=== PATIENT | male | born 1960 | race Caucasian/White ===

== ENCOUNTER 2016-08-07 13:15 | Emergency (ER) | payer OTHER ==
[2016-08-07] MEDS ORDERED: DIPH/PERTUSS(ACELL)/TETANUS VAC/PF 0.5 ML SYR (>=10YO) IM ONE (13:40)
[2016-08-07] MEDS ORDERED: OXYCODONE-ACETAMINOPHEN 5-325 MG TABLET PO ONE (13:43)
[2016-08-07] MEDS ORDERED: ONDANSETRON 4 MG TAB.RAPDIS PO ONE (13:43)
--- NOTE | 2016-08-07 13:43 | ER Document Report ---
ED Medical Screen (RME) - General Chief Complaint: Laceration Stated Complaint: FINGER INJURY Mode of Arrival: Ambulatory Information source: Patient TRAVEL OUTSIDE OF THE [place] IN LAST 30 DAYS: No - HPI Onset: Just prior to arrival Onset/Duration: Sudden Context: And got too close to tablesaw. Quality of pain: Dull Associated Symptoms: None - Related Data Allergies/Adverse Reactions: No Known Allergies Allergy (Unverified 08/07/16 13:37) Past Medical History - General Information source: Patient - Medical History Medical History: Negative Renal/ Medical History: Denies: Hx Peritoneal Dialysis Review of Systems - Review of Systems Constitutional: No symptoms reported EENT: No symptoms reported Cardiovascular: No symptoms reported Musculoskeletal: See HPI Skin: See HPI Neurological/Psychological: See HPI. denies: Lost consciousness Physical Exam - Vital signs Vitals: Temp Pulse Resp BP Pulse Ox 97.6 F 65 18 187/86 H 100 08/07/16 13:19 08/07/16 13:19 08/07/16 13:19 08/07/16 13:19 08/07/16 13:19 Interpretation: Hypertensive - General General appearance: Appears well, Alert In distress: None - Extremities General upper extremity: No: Normal inspection - R. HAND (SEE BELOW) Hand: Laceration - IRREG. LAC. 2.5 cm LENGTH TO DISTAL PAD R. THUMB. ABRASION / LACERATION RADIAL SIDE OF INDEX FINGER PIP JOINT. Course - Vital Signs Vital signs: Temp Pulse Resp BP Pulse Ox 97.6 F 65 18 187/86 H 100 08/07/16 13:19 08/07/16 13:19 08/07/16 13:19 08/07/16 13:19 08/07/16 13:19
--- NOTE | 2016-08-07 14:35 | ER Document Report ---
ED Wound - General Time seen by provider: 14:15 Mode of Arrival: Ambulatory Information source: Patient TRAVEL OUTSIDE OF THE [place] IN LAST 30 DAYS: No - HPI Patient complains to provider of: Laceration Occurred: Just prior to arrival - see HPI note Onset/Duration: Sudden Quality of pain: Throbbing Context: Injury, Work related Associated Symptoms: Avulsion <EDSON SANTOS - Last Filed: 08/07/16 15:39> <KARIE PETERS - Last Filed: 08/07/16 21:07> - General Chief Complaint: Laceration Stated Complaint: FINGER INJURY Notes: Patient is a 55 year old male presenting to the emergency department for a laceration to his right thumb. Patient states he was using a saw and he accidentally grabbed the saw with his right thumb just prior to arrive to the emergency department. Patient's last tetanus vaccination is unknown. Patient has no known allergies. (EDSON SANTOS) - Related Data Allergies/Adverse Reactions: No Known Allergies Allergy (Unverified 08/07/16 13:37) Past Medical History - General Information source: Patient - Social History Smoking Status: Never Smoker Cigarette use (# per day): No Chew tobacco use (# tins/day): No Frequency of alcohol use: None Drug Abuse: Marijuana Family History: None Patient has suicidal ideation: No Patient has homicidal ideation: No - Medical History Medical History: Negative Surgical Hx: Negative - Immunizations Hx Diphtheria, Pertussis, Tetanus Vaccination: Yes - 08/07/16 <EDSON SANTOS - Last Filed: 08/07/16 15:39> Review of Systems - Review of Systems Constitutional: No symptoms reported EENT: No symptoms reported Cardiovascular: No symptoms reported Respiratory: No symptoms reported Gastrointestinal: No symptoms reported Genitourinary: No symptoms reported Male Genitourinary: No symptoms reported Musculoskeletal: No symptoms reported Skin: See HPI Hematologic/Lymphatic: No symptoms reported Neurological/Psychological: No symptoms reported -: Yes All other systems reviewed and negative <EDSON SANTOS - Last Filed: 08/07/16 15:39> Physical Exam <EDSON SANTOS - Last Filed: 08/07/16 15:39> <KARIE PETERS - Last Filed: 08/07/16 21:07> - Vital signs Vitals: Temp Pulse Resp BP Pulse Ox 97.6 F 65 18 187/86 H 100 08/07/16 13:19 08/07/16 13:19 08/07/16 13:19 08/07/16 13:19 08/07/16 13:19 - Notes Notes: GENERAL: Alert, interacts well. No acute distress. HEAD: Normocephalic, atraumatic. EYES: Pupils equal, round, and reactive to light. Extraocular movements intact. ENT: Oral mucosa moist, tongue midline. NECK: Full range of motion. Supple. Trachea midline. LUNGS: No respiratory distress. HEART: Regular rate. ABDOMEN: Non-distended. EXTREMITIES: 4 cm jagged gap laceration to the pad of the right thumb, decreased sensation to the pad of the thumb, sensation to the nail, tip of finger and other surrounding areas is intact. 1 cm by 1.54 cm avulsion distally to the ulnar aspect of the right thumb. Able to see the flexor tendon which is penetrated through, able to palpate the bone. Unable to flex the IP joint of the right thumb. Superficial abrasion over the PIP joint of the right index finger; normal ROM and sensation intact to the right index finger. Moves all 4 extremities spontaneously. No edema, radial pulses 2/4 bilaterally. No cyanosis. NEUROLOGICAL: Alert and oriented x3. Normal speech. PSYCH: Normal affect, normal mood. SKIN: Warm, dry, normal turgor. See above for details on laceration. (EDSON SANTOS) Course - Consults Dr. Kate Time consulted: 14:50 Consulted provider: follow-up in office <EDSON SANTOS - Last Filed: 08/07/16 15:39> <KARIE PETERS - Last Filed: 08/07/16 21:07> - Vital Signs Vital signs: Temp Pulse Resp BP Pulse Ox 97.6 F 70 20 160/77 H 97 08/07/16 16:30 08/07/16 16:30 08/07/16 16:30 08/07/16 16:30 08/07/16 16:30 - Consults Dr. Kate Reason for consultation: 08/07/16 14:[address] Kate about patient's laceration. He agrees with irrigating the wound, starting the patient on antibiotics, loosely approximating the wound , and the patient will follow-up in his office tomorrow morning. (EDSON SANTOS ) Procedures - Immobilization Right Thumb Pre-Proc Neuro Vasc Exam: Abnormal - Decreased sensation to the distal aspect of the pad of the thumb. Immobilizer type: Finger splint (Static) Performed by: PCT Post-Proc Neuro Vasc Exam: Abnormal, Unchanged from pre-exam Alignment checked and good: Yes - Laceration/Wound Repair Right Thumb proximal Wound length (cm): 4 Wound's Depth, Shape: Into muscle, Irregular, Contused tissue, Other - flexor tendon laceration Laceration pre-procedure: Sterile PPE donned, Sterile drapes applied, Shur- Clens applied Anesthetic type: 1% Lidocaine Volume Anesthetic (mLs): 5 Wound explored: No foreign body removed, Contaminated Wound Debrided: Minimal - irrigated with tap water and soap for 5 minutes Wound Repaired With: Sutures Suture Size/Type: 4:0, Ethilon Number of Sutures: 7 Layer Closure?: No Post-procedure wound care: Sterile dressing applied, Splint applied Post-procedure NV exam normal: No - decreased sensation same as prior Complications: No right thumb distal Wound length (cm): 1.5 Wound's Depth, Shape: Into muscle, Irregular, Contused tissue Laceration pre-procedure: Sterile PPE donned, Sterile drapes applied, Shur- Clens applied Anesthetic type: 1% Lidocaine Volume Anesthetic (mLs): 4 - nerve block Wound explored: No foreign body removed, Contaminated Wound Repaired With: Sutures Suture Size/Type: 4:0, Ethilon Number of Sutures: 3 Layer Closure?: No Post-procedure wound care: Sterile dressing applied, Splint applied Post-procedure NV exam normal: No - decreased sensation same as prior Complications: No <KARIE PETERS - Last Filed: 08/07/16 21:07> Discharge <EDSON SANTOS - Last Filed: 08/07/16 15:39> <KARIE PETERS - Last Filed: 08/07/16 21:07> - Discharge Clinical Impression: Laceration of right thumb with tendon involvement Qualifiers: Encounter type: initial encounter Qualified Code(s): S61.011A - Laceration without foreign body of right thumb without damage to nail, initial encounter Hypertension Qualifiers: Hypertension type: essential hypertension Qualified Code(s): I10 - Essential ( primary) hypertension Condition: Stable Disposition: HOME, SELF-CARE Additional Instructions: Please follow up with Dr. Kate and Dr. Mattson tomorrow morning. He will need to have the tendon in your thumb repaired. Please keep the splint on. Do not eat anything after midnight. Please keep the area clean and dry. Please take the Augmentin as directed until it is gone. Please use ibuprofen ( Motrin or Advil) 600-800 mg every 8 hours as needed for pain or fever. You may also use acetaminophen (Tylenol) 1000 mg every 4-6 hours as needed for pain. If these do not work you may take the [place]. Prescriptions: Hydrocodone/Acetaminophen [[place] 5-325 mg Tablet] 1 tab PO Q4HP PRN #10 tablet PRN Reason: Amox Tr/Potassium Clavulanate [Augmentin 875-125 Tablet] 1 tab PO BID 10 Days Forms: Elevated Blood Pressure Referrals: ALESSANDRA KATE MD [ACTIVE STAFF] - Follow up tomorrow Scribe Attestation: 08/07/16 21:06 I personally performed the services described in the documentation, reviewed and edited the documentation which was dictated to the scribe in my presence, and it accurately records my words and actions. (KARIE PETERS) Scribe Documentation - Scribe Written by Scrriddhi:: Edson Santos 08/07/16 14:55 acting as scribe for :: Stiven <EDSON SANTOS - Last Filed: 08/07/16 15:39>
[2016-08-07] MEDS ORDERED: LIDOCAINE 1% INJ-PF (10 MG/ML) 30 ML SDV INJ ONE (15:02)
[2016-08-07] MEDS ORDERED: AMOXICILLIN TR/POT CLAVULANATE 500-125 MG TAB PO ONE (15:04)
[2016-08-07 16:31] VITALS: BP 160/77
== END 2016-08-07 16:36 | disposition home or self-care (01) ==
LOC: ER 13:15
PROC: 0HQFXZZ Repair Right Hand Skin, External Approach (ICD-10-PCS; principal; 2016-08-07)
DX: S61.011A Laceration without foreign body of right thumb without damage to nail, initial encounter (principal); I10 Essential (primary) hypertension; W45.8XXA Other foreign body or object entering through skin, initial encounter
CPT/HCPCS: 99283; 90471; 73140; 90715; 12042; S0119; J3490

== ENCOUNTER 2016-08-12 08:37 | Day surgery (SDC) | payer OTHER ==
[2016-08-12] MEDS ORDERED: CEFAZOLIN 2 GM/D5W RTU 2 GM/50 ML RTUPB IV ONE (09:10)
[2016-08-12] MEDS ORDERED: BUPIVACAINE HCL 0.5 % INJ/PF 30 ML SDV ONE (09:33)
[2016-08-12 09:37] LABS: APPEARANCE,URINE CLEAR; BILIRUBIN,URINE NEGATIVE (NEGATIVE); GLUCOSE, URINE NEGATIVE (NEGATIVE); KETONES,URINE NEGATIVE (NEGATIVE); LEUKOCYTE ESTERASE,URINE NEGATIVE (NEGATIVE); NITRITE,URINE NEGATIVE (NEGATIVE); PROTEIN,URINE NEGATIVE (NEGATIVE); URINE SPECIFIC GRAVITY 1.019; UROBILINOGEN,URINE NEGATIVE mg/dL (<2.0)
[2016-08-12 10:06] LABS: HEMATOCRIT 40.7 % (37.9-51.0); HEMOGLOBIN 13.2 g/dL (13.5-17.0); HGB HCT DIFFERENCE -1.1; MEAN CORPUSCULAR HEMOGLOBIN 27.8 pg (27.0-33.4); MEAN CORPUSCULAR HGB CONC 32.5 g/dL (32.0-36.0); MEAN CORPUSCULAR VOLUME 86 fl (80-97); RED BLOOD COUNT 4.76 10^6/uL (4.35-5.55); WHITE BLOOD COUNT 5.8 10^3/uL (4.0-10.5)
[2016-08-12 10:23] LABS: ANION GAP 9 (5-19); BLOOD UREA NITROGEN 23 mg/dL (7-20); CALCIUM 9.7 mg/dL (8.4-10.2); CARBON DIOXIDE 26 mmol/L (22-30); CHLORIDE 108 mmol/L (98-107); CREATININE RESULT 0.78 mg/dL (0.52-1.25); GLUCOSE 109 mg/dL (75-110); POTASSIUM 4.9 mmol/L (3.6-5.0); SODIUM 142.5 mmol/L (137-145)
[2016-08-12] MEDS ORDERED: HYDROMORPHONE HCL INJ/PF 2 MG/ML AMPULE ONE (12:38)
[2016-08-12] MEDS ORDERED: FENTANYL CITRATE INJ/PF 100 MCG/2 ML AMPUL ONE (12:38)
[2016-08-12] MEDS ORDERED: IBUPROFEN INJ 800 MG/8 ML VIAL IV ONE (12:39)
[2016-08-12] MEDS ORDERED: MIDAZOLAM 2 MG/2 ML INJ ONE (12:39)
[2016-08-12] MEDS ORDERED: PROPOFOL INJ 200 MG/20 ML VIAL IV ONE (12:39)
[2016-08-12] MEDS ORDERED: ONDANSETRON HCL INJ/PF 4 MG/2 ML SDV ONE (12:39)
[2016-08-12] MEDS ORDERED: PROMETHAZINE HCL INJ 25 MG/1 ML VIAL IV PRN (13:11)
[2016-08-12] MEDS ORDERED: DIPHENHYDRAMINE HCL 50 MG/ML VIAL IV PRN (13:11)
[2016-08-12] MEDS ORDERED: MEPERIDINE HCL/PF INJ 25 MG/1 ML DISP.SYRIN IV PRN (13:11)
[2016-08-12] MEDS ORDERED: FENTANYL CITRATE INJ/PF 100 MCG/2 ML AMPUL IV PRN ×3 (13:11)
--- NOTE | 2016-08-12 15:32 | Operative Report ---
Operative Report DATE OF SURGERY: 08/12/16 PREOPERATIVE DIAGNOSIS: Right thumb laceration status post table saw injury POSTOPERATIVE DIAGNOSIS: Right Thumb FPL Laceration w/ Soft Tissue Loss OPERATION: Excisional Debridement Right Thumb w/ Zone I FPL Repair. Advancement Flap Right Thumb SURGEON: RINA DAVIS ANESTHESIA: GA COMPLICATIONS: None ESTIMATED BLOOD LOSS: Minimal PROCEDURE: Indication for above procedure: 55-year-old male who sustained a table saw injury while at work to his right thumb. Patient was seen at the emergency room where the area was irrigated and loosely closed. Patient was started on Augmentin. He subsequently followed up with me at which point we discussed findings on physical examination treatment options. After discussing prognosis and expectations of operative versus nonoperative intervention we made a joint decision to proceed with operative treatment. All patient questions were answered. Procedure In Detail: Patient was seen and evaluated in the preoperative holding area. The RIGHT upper extremity was initialized and marked. Patient received 2g of Ancef IV for bacterial prophylaxis. Patient was taken back to the operative room where transferred to the operative table and placed under general anesthesia. Once they were adequately anesthetized a nonsterile tourniquet was placed on the upper extremity. A surgical team debriefing was performed ensuring all instrumentation was available, the surgical procedure was discussed with possible concerns reviewed. The upper extremity was prepped with chlorhexidine and alcohol and draped in a sterile fashion. A timeout was done identifying correct patient, procedure and extremity everyone in attendance agree with this and verbalized no concerns. The extremity was exsanguinated the tourniquet was inflated to 250 mmHg. Patient's previous sutures were removed. Blunt dissection was performed. Any nonviable skin and soft tissue was carefully excised. I extended the patient's transverse incision along the radial and ulnar borders of the thumb to the level of the a 1 amelia proximally to allow for a later Edwardo-type advancement for coverage of the soft tissue loss along the base of the distal phalanx. The area was then irrigated with saline. There was evidence of disruption of the ulnar neurovascular bundle the nerve However was greater than 30 mm and at the level of the trifurcation there was not evidence of viable neurofibrils to allow for repair. Thus the one portion of the stump was buried proximally to avoid postoperative neuroma. Radially there was also disruption of the radial digital nerve distally at the level of the trifurcation. But given intact innervation to the skin along the volar portion of the thumb the goal is to provide some protected sensation with the Edwardo advancement. I then proceeded with identification of the FPL. The oblique amelia was preserved. The A2 amelia was released proximally. With the tendon retriever I attempted to locate the FPL but was unsuccessful. Thus I turned my attention to the carpal canal which is likely the area of retraction. A longitudinal skin incision was made along with the radial border of the middle finger blunt dissection was performed the palmar fascia was released. I then completed release of the transverse carpal ligament proximally and distally median nerve was identified with some compression. The FPL tendon was then identified and retrieved. Utilizing a 40 fiber loop suture it was secured in with the tendon grasper the sutures were fed through the oblique amelia distally. I then secured the tendon to the surrounding soft tissue with a 22-gauge needle. I then prepared the bone bed for repair of the FPL tendon. A second fluoroscopy fiber loop suture was placed provide any 4 suture limbs. With a Tomas needle I drilled to the distal phalanx through the central portion of the sterile matrix taking special care to avoid the germinal matrix 2 suture limbs were then passed. I repeated a proximally 9 mm from my previous drill hole. The thumb was then placed in flexion and the sutures secured. Patient had full IP joint flexion with the wrist in extension and a proximally 20 of remaining flexion with the wrist in flexion. The wound was then copiously irrigated with normal saline. The Edwardo advancement flap was advanced approximately 1 cm distally providing coverage to the proximal portion of the distal phalanx this was secured distally with interrupted 4-0 chromic gut suture. The radial and ulnar limbs were secured with interrupted 4-0 nylon suture. The carpal tunnel wound was irrigated with saline any peripheral vascular coagulated with bipolar cautery skin incision was closed a running horizontal mattress 3-0 nylon suture. Prior to placement of postoperative dressings the tourniquet was deflated I had good peripheral vascular suture of my Edwardo flap there was bleeding from the thumb tip after placement of a 22-gauge needle. I then Dermabonded the sutures dorsally along the fingernail. 20 mL of 0.5% Marcaine without epinephrine was injected for postoperative pain control. Wound was dressed with Xeroform 4 x 4' s and patient was placed in a dorsal blocking thumb spica splint with the thumb at 45 of flexion IP joint, 30 flexion of the MCP joint and 20 flexion of the wrist joint. Sponge counts, instrument counts, needle counts counts were correct. Patient was then awoken from anesthesia. Transferred from the operating room table to the operating room stretcher. There was no intraoperative complications patient tolerated procedure well stable to PACU. Postoperative plan: Patient will be set up with occupational therapy in 5-7 days and be started on zone I flexor tendon repair protocol patient may begin early active motion given the good stability of my flexor tendon repair. Patient will follow up with me in 2 weeks for suture removal.
[2016-08-12] MEDS ORDERED: OXYCODONE-ACETAMINOPHEN 5-325 MG TABLET PO ONE (16:17)
[2016-08-12] MEDS ORDERED: MORPHINE SULFATE 10 MG/ML INJ IV PRN (16:20)
[2016-08-12] MEDS ORDERED: OXYCODONE-ACETAMINOPHEN 5-325 MG TABLET ONE (16:20)
[2016-08-12] MEDS ORDERED: OXYCODONE-ACETAMINOPHEN 5-325 MG TABLET PO PRN (16:20)
--- NOTE | 2016-08-12 17:01 | EKG REPORT ---
SEVERITY:- OTHERWISE NORMAL ECG - SINUS RHYTHM BORDERLINE LEFT AXIS DEVIATION : Confirmed by: Antonia Suazo 12-Aug-2016 17:00:00
[2016-08-12 17:42] VITALS: BP 168/91
--- NOTE | 2016-08-15 13:32 | PDOC DISCHARGE SUMMARY ---
Discharge Summary (SDC) - Discharge Final Diagnosis: Right thumb laceration status post table saw injury Date of Surgery: 08/12/16 Discharge Date: 08/12/16 Condition: Good Treatment or Instructions: Schedule Follow Up w/ Dr. Nathaniel Mattson @ [facility] to be seen in 10-14 days or as scheduled [place]: [place]: [place]: Keep splint clean/dry/intact. Ice and elevate May begin finger range of motion attempting to make full fist. Stool softener of choice when on pain medication. Prescriptions: Oxycodone HCl/Acetaminophen [Percocet 5-325 mg Tablet] 1 - 2 tab PO ASDIR PRN # 45 tablet PRN Reason: Discharge Diet: As Tolerated Respiratory Treatments at Home: Deep Breathing/Coughing Discharge Activity: No Lifting Over 10 Pounds, No Lifting/Push/Pulling Report the Following to Your Physician Immediately: Fever over 101 Degrees, Unusual Bleeding, Redness, Swelling, Warmth, Increased Soreness, Numbness, Tingling Sensation
== END 2016-08-12 17:15 | disposition home or self-care (01) ==
LOC: OROUT 08:37
PROVIDERS: ATTEND Orthopaedic Surgery
PROC: 0LX70ZZ Transfer Right Hand Tendon, Open Approach (ICD-10-PCS; principal; 2016-08-12 10:45)
DX: S61.011A Laceration without foreign body of right thumb without damage to nail, initial encounter (principal); W31.2XXA Contact with powered woodworking and forming machines, initial encounter; Y92.69 Other specified industrial and construction area as the place of occurrence of the external cause; M79.644 Pain in right finger(s); F17.210 Nicotine dependence, cigarettes, uncomplicated
CPT/HCPCS: 36415; 85027; 80048; 81001; 71010; 93005; 93010; 26500; J2250; J3010; J1170; J2405; J2704; J0690; J1741; 1810

== ENCOUNTER → 2016-08-12 | Outpatient (CLI) | payer OTHER | LOC: OD 08:07 | PROVIDERS: ATTEND Orthopaedic Surgery | DX: Z01.818 Encounter for other preprocedural examination (principal); Z53.8 Procedure and treatment not carried out for other reasons ==